=== PATIENT | male | born 1950 | race Caucasian/White ===

== ENCOUNTER → 2016-11-16 | Outpatient (CLI) | payer OTHER | END | disposition home or self-care (01) | DX: M16.12 Unilateral primary osteoarthritis, left hip (principal); R26.2 Difficulty in walking, not elsewhere classified; M25.552 Pain in left hip; M25.652 Stiffness of left hip, not elsewhere classified; M62.81 Muscle weakness (generalized) | CPT/HCPCS: 97110 GP; 97150 GO; 97161 GP; 97165 GO; G8978 GP; G8979 GP; G8980 GP; G8987 GO; G8988 GO; G8989 GO ==

== ENCOUNTER 2016-11-30 05:35 | Inpatient (IN) | payer OTHER ==
[~2016-11-30] VITALS: Ht 182.9 cm; Wt 168.4 kg
[~2016-11-30 05:35] MED LIST: ADVAIR 250/501 DISK IH; FISH OIL 1,0001 EA11 PO; HUMULIN R500 UNITS/ SC; LITE COAT ASPI325 M1 PO; MAVIK2 MG PO; MOBIC15 MG PO; SPIRIVA1 INHALATI IH; ULTRAM50 MG PO; WELLBUTRIN XL300 MG PO; ZOLOFT100 MG PO
[2016-11-30] MEDS ORDERED: ZETIA10 MG PO (06:02)
[2016-11-30] MEDS ORDERED: LIPITOR80 MG PO (06:03)
[2016-11-30 06:16] LABS: POINT-OF-CARE METER ID UU13113694
[2016-11-30 06:19] VITALS: BP 131/60
[2016-11-30 10:21] LABS: POINT-OF-CARE METER ID UU13113675
[2016-11-30 11:17] LABS: HEMATOCRIT 35.4 % (38.0-50.0); MCH 30.4 PG (29.0-34.0); MCHC 31.4 G/DL (30.0-36.0); MEAN PLAT.VOLUME 9.4 uM^3 (9.0-12.4); PLATELET COUNT 226 K/uL (156-360); RBC DIS.WIDTH-SD 53.7 % (39-53)
[2016-11-30 11:18] LABS: RED BLOOD COUNT 3.65 M/uL (4.00-5.50)
[2016-11-30 13:23] VITALS: BP 111/55
[2016-11-30 15:43] VITALS: BP 133/72
[2016-11-30 16:16] LABS: POINT-OF-CARE METER ID UU14174215
[2016-11-30 20:12] VITALS: BP 136/64
[2016-11-30 21:53] LABS: POINT-OF-CARE METER ID UU14174215
[2016-12-01 00:15] VITALS: BP 142/74
[2016-12-01 04:12] VITALS: BP 111/56
[2016-12-01 06:38] LABS: HEMATOCRIT 32.8 % (38.0-50.0); MCV 96.2 FL (86-99)
[2016-12-01 06:59] LABS: ANION GAP 10 MEQ/L (2-14); CHLORIDE 100 MEQ/L (99-109); GFR ESTIMATE (CALCULATED) > 59 mL/min/; GLUCOSE 138 mg/dL (70-99); POTASSIUM 3.9 MEQ/L (3.7-5.4); SAMPLE HEMOLYSIS CHECK 0; SAMPLE ICTERIC CHECK 0; SAMPLE LIPEMIA CHECK 0; SODIUM 135 MEQ/L (136-147); UREA NITROGEN (BUN) 13 mg/dL (9-23)
[2016-12-01 07:45] LABS: POINT-OF-CARE METER ID UU14174215
[2016-12-01 08:18] VITALS: BP 116/55
[2016-12-01 11:42] VITALS: BP 100/54
[2016-12-01 12:10] LABS: POINT-OF-CARE METER ID UU14174215
[2016-12-01 15:52] VITALS: BP 110/57
[2016-12-01 16:38] LABS: POINT-OF-CARE METER ID UU14174215
[2016-12-01 20:29] VITALS: BP 104/55
[2016-12-01 22:12] LABS: POINT-OF-CARE METER ID UU14174215
[2016-12-02] VITALS (9 sets, daily range): BP systolic 80–122; BP diastolic 50–73
[2016-12-02 07:46] LABS: POINT-OF-CARE METER ID UU14174215
[2016-12-02] MEDS ORDERED: ENDOCET 5-3251 EACH PO (09:06)
[2016-12-02] MEDS ORDERED: CELECOXIB200 MG PO (09:06)
[2016-12-02] MEDS ORDERED: LOVENOX40 MG/0.4 SC (09:06)
[2016-12-02 09:38] LABS: TROP-I INTERPRETATION NEGATIVE; TROPONIN-I 0.01 ng/mL (0.0-0.30)
[2016-12-02 09:45] LABS: ANION GAP 16 MEQ/L (2-14); CHLORIDE 98 MEQ/L (99-109); GFR ESTIMATE (CALCULATED) 40 mL/min/; POTASSIUM 3.6 MEQ/L (3.7-5.4); SAMPLE HEMOLYSIS CHECK 0; SAMPLE ICTERIC CHECK 0; SAMPLE LIPEMIA CHECK 0; SODIUM 135 MEQ/L (136-147)
[2016-12-02 09:48] LABS: GLUCOSE 89 mg/dL (70-99); UREA NITROGEN (BUN) 23 mg/dL (9-23)
[2016-12-02 11:42] LABS: POINT-OF-CARE METER ID UU14174215
[2016-12-02 14:22] LABS: HEMATOCRIT 29.8 % (38.0-50.0); MCV 95.2 FL (86-99)
[2016-12-02 16:14] LABS: POINT-OF-CARE METER ID UU14174215
[2016-12-02 20:22] LABS: ADD MIUA? YES; BILIRUBIN NEGATIVE; BLOOD LARGE; COLOR AMBER ((YELLOW)); GLUCOSE (STRIP) NEGATIVE; KETONES NEGATIVE; LEUKOCYTES MODERATE; NITRITE NEGATIVE; PROTEIN (STRIP) 30; SPECIFIC GRAVITY 1.025 (1.000-1.030); UROBILINOGEN 0.2 MG/DL (0.2-1.0)
[2016-12-02 20:49] LABS: RED BLOOD CELLS 15-20 /HPF (0-5); WHITE BLOOD CELLS 40-50 /HPF (0-5)
[2016-12-02 20:50] LABS: EPITHELIAL CELLS 2+ /HPF; WHITE BLOOD CELLS CLUMP FEW /HPF (0-5)
[2016-12-02 20:51] LABS: ANION GAP 11 MEQ/L (2-14); CHLORIDE 99 MEQ/L (99-109); POTASSIUM 3.7 MEQ/L (3.7-5.4); SAMPLE HEMOLYSIS CHECK 0; SAMPLE ICTERIC CHECK 0; SAMPLE LIPEMIA CHECK 0; SODIUM 134 MEQ/L (136-147)
[2016-12-02 20:51] LABS: AMORPHOUS URATES CRYSTALS 3+
[2016-12-02 20:52] LABS: HYALINE CASTS RARE /LPF; MUCUS TRACE /LPF
[2016-12-02 21:03] LABS: GFR ESTIMATE (CALCULATED) 24 mL/min/; UREA NITROGEN (BUN) 31 mg/dL (9-23)
[2016-12-02 21:08] LABS: GLUCOSE 117 mg/dL (70-99)
[2016-12-03 01:13] VITALS: BP 100/55
[2016-12-03 06:02] VITALS: BP 125/59
[2016-12-03 06:49] LABS: ANION GAP 10 MEQ/L (2-14); CHLORIDE 103 MEQ/L (99-109); GFR ESTIMATE (CALCULATED) 30 mL/min/; GLUCOSE 127 mg/dL (70-99); POTASSIUM 3.9 MEQ/L (3.7-5.4); SAMPLE HEMOLYSIS CHECK 0; SAMPLE ICTERIC CHECK 0; SAMPLE LIPEMIA CHECK 0; SODIUM 138 MEQ/L (136-147); UREA NITROGEN (BUN) 30 mg/dL (9-23)
[2016-12-03 07:52] VITALS: BP 100/56
[2016-12-03 12:17] LABS: POINT-OF-CARE METER ID UU14117124
[2016-12-03 16:09] LABS: POINT-OF-CARE METER ID UU14117124
[2016-12-03 16:22] VITALS: BP 105/50
== END 2016-12-03 19:03 | DRG 470 ==
LOC: 2SOUTH → 3WEST 05:35 → 2SOUTH 10:16 → 3WEST 12:49 → ENRESERV 12-02 06:40 → 3EAST 12-02 16:46
PROVIDERS: Internal Medicine; Orthopaedic Surgery; Physician Assistant
PROC: 0SRB0JA Replacement of Left Hip Joint with Synthetic Substitute, Uncemented, Open Approach (ICD-10-PCS; principal; 2016-11-30)
DX: M16.12 Unilateral primary osteoarthritis, left hip (principal); J44.9 Chronic obstructive pulmonary disease, unspecified; I10 Essential (primary) hypertension; E78.5 Hyperlipidemia, unspecified; G47.33 Obstructive sleep apnea (adult) (pediatric); I25.10 Atherosclerotic heart disease of native coronary artery without angina pectoris; E66.01 Morbid (severe) obesity due to excess calories; F32.9 Major depressive disorder, single episode, unspecified; N13.8 Other obstructive and reflux uropathy; E11.9 Type 2 diabetes mellitus without complications; T39.395A Adverse effect of other nonsteroidal anti-inflammatory drugs [NSAID], initial encounter; N17.9 Acute kidney failure, unspecified; N39.0 Urinary tract infection, site not specified; N28.1 Cyst of kidney, acquired; R33.8 Other retention of urine; Z87.440 Personal history of urinary (tract) infections; Z68.43 Body mass index [BMI] 50.0-59.9, adult; Z95.1 Presence of aortocoronary bypass graft; Z79.82 Long term (current) use of aspirin; R33.9 Retention of urine, unspecified
CPT/HCPCS: 71010; 73501; 73522; 76770; 80048; 80048 91; 81003; 82948; 84484; 85014; 85018; 85027; 87086; 89190; 94640; 94640 76; 94799; 97530 GO; 97530 GP; J0131; J0690; J0696; J1170; J1650; J1815; J2250; J7030; J7040; J7050